=== PATIENT | female | born 1985 | race Caucasian/White ===

== ENCOUNTER 2022-11-11 16:11 | Outpatient (REF) | payer MEDICAID, SELFPAY ==
[2022-11-11 20:58] LABS: RBC Negative HPF (0-2); WBC Negative HPF (0-5)
[2022-11-11 20:59] LABS: Bacteria Rare HPF (Negative); Casts Negative LPF (Negative); Crystals Negative HPF (Negative); Mucus Negative (Negative)
[2022-11-11 21:01] LABS: C & S Indicated? C&S Done As Ordered; Epithelial Cells Moderate HPF (Negative)
== END 2022-11-11 16:12 | disposition home or self-care (01) ==
LOC: NCHCN 16:11
PROVIDERS: PCP Family Medicine; Visit Provider Physician Assistant Medical
DX: R39.89 Other symptoms and signs involving the genitourinary system (principal); R82.998 Other abnormal findings in urine
CPT/HCPCS: 81015; 87086

== ENCOUNTER 2023-06-23 16:42 | Outpatient (CLI) | payer MEDICAID, SELFPAY ==
[2023-06-23 07:24] LABS: Abs Immature Grans 0.03 10^3/uL (0.0-0.06); Absolute Basophil Count 0.02 10^3/uL (0.0-0.2); Absolute Eosinophil Count 0.14 10^3/uL (0.0-0.7); Absolute Lymphocyte Count 2.02 10^3/uL (1.2-3.4); Absolute Monocyte Count 0.66 10^3/uL (0.1-0.8); Absolute Neutrophil Count 4.83 10^3/uL (1.2-6.7); Basophils % 0.3; Eosinophils % 1.8; HCT 43.1 % (36.0-46.0); HGB 14.7 g/dL (11.2-15.7); Immature Grans % 0.4; Lymphocytes % 26.2; MCH 27.8 pg (27.0-33.0); MCHC 34.1 % (32.0-36.0); MCV 82 fL (80-95); MPV 10.1 fL (8.0-11.0); Monocytes % 8.6; Neutrophils % 62.7; Platelet Count 223 10^3/uL (130-400); RBC 5.28 10^6/uL (3.93-5.22); RDW 13.5 % (11.7-14.6); RDW-SD 40.1 fL
[2023-06-23 08:18] LABS: ALT 18 U/L (14-59); AST 17 U/L (15-37); Albumin 4.1 g/dL (3.4-5.0); Alkaline Phosphatase 108 U/L (46-116); Anion Gap 13.8 mmol/L (3-11); BUN 10 mg/dL (7-18); Bilirubin, Total 0.8 mg/dL (0.2-1.0); CO2 23.2 mmol/L (21.0-32.0); CREATININE 1.3 mg/dL (0.55-1.02); Calcium 9.2 mg/dL (8.5-10.1); Calculated LDL 63 mg/dL (<100); Chloride 102 mmol/L (98-107); Cholesterol 134 mg/dL (<200); Estimated GFR 54.65 (mL/min/1.73m2); Glucose 85 mg/dL (74-106); HDL Cholesterol 55 mg/dL (40-60); Potassium 3.4 mmol/L (3.5-5.1); Sodium 139 mmol/L (136-145); TSH (W/Ref FT4) 5.51 uIU/mL (0.36-3.74); Total Protein 7.8 g/dL (6.4-8.2); Triglyceride 81 mg/dL (<150)
[2023-06-23 08:35] LABS: FREE T4 0.94 ng/dL (0.76-1.46)
[2023-06-25 10:20] LABS: HIV-1/2 Ag & Ab Screen Negative (Negative)
[2023-06-26 10:26] LABS: Hepatitis C Ab w Rflx HCV PCR Negative (Negative)
== END 2023-06-23 16:43 | disposition home or self-care (01) ==
LOC: LBO 16:43
PROVIDERS: PCP Nurse Practitioner; Visit Provider Nurse Practitioner
DX: R63.5 Abnormal weight gain (principal); R94.6 Abnormal results of thyroid function studies; R79.89 Other specified abnormal findings of blood chemistry; G43.909 Migraine, unspecified, not intractable, without status migrainosus; J45.909 Unspecified asthma, uncomplicated; Z11.4 Encounter for screening for human immunodeficiency virus [HIV]; Z11.59 Encounter for screening for other viral diseases
CPT/HCPCS: 36415; 80053; 80061; 86803; 87389; 84439; 84443; 85025

== ENCOUNTER 2023-06-26 09:14 | Outpatient (REF) | payer MEDICAID, SELFPAY ==
--- NOTE | 2023-06-26 14:00 | PAPFT_PTH ---
PATIENT: Citlali Smith LOC: [facility] U#:[id number] AGE/SX: 37/F ROOM: RE06/26/[address]: Malinda Sanders APRN : 1985 BED: DIS: 06/26/2023 SPEC #: [id number] RECD: 06/27/23 13:17 STATUS: ASHWIN CHASE #: [id number] MILY: 06/26/23 14:[address]: Malinda Sanders DEPT: [facility] Cytology RECD BY: Elva Rico Tissues: 1 - CX/ENDOCX FOR PAP SMEARS Procedures: PAP THIN PREP/[facility] Screening HPV DNA PROBE Comments: [id number]
== END 2023-06-26 09:15 | disposition home or self-care (01) ==
LOC: LBN 09:14
PROVIDERS: PCP Nurse Practitioner; Visit Provider Nurse Practitioner
DX: Z12.4 Encounter for screening for malignant neoplasm of cervix (principal); Z11.51 Encounter for screening for human papillomavirus (HPV)
CPT/HCPCS: 88142; 87624

== ENCOUNTER 2023-07-28 01:52 | Outpatient (CLI) | payer MEDICAID, SELFPAY ==
[2023-07-28 08:18] LABS: Anion Gap 7.2 mmol/L (3-11); BUN 15 mg/dL (7-18); CO2 25.8 mmol/L (21.0-32.0); Calcium 8.8 mg/dL (8.5-10.1); Chloride 104 mmol/L (98-107); Estimated GFR 74.88 (mL/min/1.73m2); Glucose 103 mg/dL (74-106); Potassium 3.7 mmol/L (3.5-5.1); Sodium 137 mmol/L (136-145)
== END 2023-07-28 01:53 | disposition home or self-care (01) ==
LOC: LBO 01:52
PROVIDERS: PCP Nurse Practitioner; Referring Provider Nurse Practitioner; Visit Provider Nurse Practitioner
DX: R79.89 Other specified abnormal findings of blood chemistry (principal); F41.8 Other specified anxiety disorders
CPT/HCPCS: 36415; 80048

== ENCOUNTER 2024-01-19 20:33 | Outpatient (REF) | payer MEDICAID, SELFPAY ==
[2024-01-19 20:18] LABS: Epithelial Cells Few HPF (Negative); WBC >50 HPF (0-5)
[2024-01-19 20:19] LABS: Bacteria Few HPF (Negative); C & S Indicated? C&S Done As Ordered; Casts Negative LPF (Negative); Crystals Negative HPF (Negative); Mucus Negative (Negative)
== END 2024-01-19 20:34 | disposition home or self-care (01) ==
LOC: LBN 20:33
PROVIDERS: PCP Nurse Practitioner; Visit Provider Physician Assistant Medical
DX: R30.0 Dysuria (principal)
CPT/HCPCS: 87077; 81015; 87086; 87186

== ENCOUNTER 2024-04-05 14:50 | Outpatient (CLI) | payer MEDICAID, SELFPAY ==
[2024-04-05 08:44] LABS: HCT 45.9 % (36.0-46.0); HGB 15.2 g/dL (11.2-15.7); MCH 27.9 pg (27.0-33.0); MCHC 33.1 % (32.0-36.0); MCV 84 fL (80-95); MPV 10.9 fL (8.0-11.0); Platelet Count 221 10^3/uL (130-400); RBC 5.44 10^6/uL (3.93-5.22); RDW 14.1 % (11.7-14.6); RDW-SD 43.3 fL; WBC 4.05 10^3/uL (4.4-10.8)
[2024-04-05 09:23] LABS: Ferritin 63 ng/mL (8-252); TSH (W/Ref FT4) 2.06 uIU/mL (0.36-3.74); Vitamin B12 408 pg/mL (193-986)
[2024-04-05 10:10] LABS: Vitamin D 25 Total 11.6 ng/mL (30-100)
== END 2024-04-05 14:51 | disposition home or self-care (01) ==
LOC: LBO 14:50
PROVIDERS: PCP Nurse Practitioner; Visit Provider Nurse Practitioner
DX: R53.83 Other fatigue (principal); E55.9 Vitamin D deficiency, unspecified
CPT/HCPCS: 36415; 82306; 85027; 82607; 82728; 84443

== ENCOUNTER → 2025-11-03 09:59 | Outpatient (CLI) | payer MEDICAID, SELFPAY ==
--- NOTE | 2025-11-03 09:45 | DI.RAD_ITS ---
Exam(s) XR CHEST 2V PA LATERAL EXAM: XR CHEST 2V PA LATERAL CLINICAL HISTORY: Rule out pneumonia, SOB, RHONCHI AT L LUNG BASE, R06.02 R09.89 TECHNIQUE: 2D digital imaging was performed of the chest. Two images were obtained. PA and lateral views were obtained. COMPARISON: CR CHEST 2 VIEWS PA,LAT from 04/03/2013 FINDINGS: MEDIASTINUM: Normal. HEART: Normal. PULMONARY VASCULATURE: Normal. LUNGS: Clear. PLEURAL SPACE: No pleural effusion or pneumothorax. BONE:Within normal limits for the patient's age. OTHER FINDINGS:Normal. IMPRESSION: No acute pulmonary findings. DATA REPOSITORY: RADIATION DOSE DELIVERED:
== END ==
LOC: DI 09:59
PROVIDERS: PCP Nurse Practitioner
DX: R06.02 Shortness of breath (principal); R09.89 Other specified symptoms and signs involving the circulatory and respiratory systems
CPT/HCPCS: 71046